=== PATIENT | female | born 1980 | race Caucasian/White ===

== ENCOUNTER 2021-03-24 16:34 | Outpatient (CLI) | payer OTHER, SELFPAY | END 2021-03-24 17:26 | disposition home or self-care (01) | LOC: OB 03-29 07:40 | PROVIDERS: PCP Family Medicine; Referring Provider Family Medicine; Visit Provider Family Medicine | DX: O47.03 False labor before 37 completed weeks of gestation, third trimester (principal); Z3A.33 33 weeks gestation of pregnancy | CPT/HCPCS: 59025; 84112; G0378; G0379 ==

== ENCOUNTER → 2021-04-13 13:53 | Outpatient (ROUT) | payer OTHER, SELFPAY | PROVIDERS: PCP Family Medicine; Visit Provider Family Medicine | DX: Z34.90 Encounter for supervision of normal pregnancy, unspecified, unspecified trimester (principal) | CPT/HCPCS: 87081 ==

== ENCOUNTER → 2021-05-04 14:40 | Outpatient (CLI) | payer OTHER, SELFPAY ==
--- NOTE | 2021-05-04 | DI.US.S_ITS ---
PROCEDURE: US OB LIMITED INDICATIONS: POSITION; EFW OUTSIDE/PRIOR DATING DATA: First dating scan (date and location): 12/24/2020. Estimated date of delivery (NELSON) from first dating scan: 05/05/2021. The calculations are made using the ultrasound NELSON of 05/05/2021. TECHNIQUE: Real-time scanning was performed of the fetus, with image documentation and biometric measurements. COMPARISON: [facility], US, US OB > 14 WEEKS FOLLOW UP, 01/18/2021, 13:56. FINDINGS: General: A single living intrauterine gestation is present. Presentation: Vertex. Placenta: Placental position is right fundal , without previa. Amniotic fluid index: 10 cm, normal range is 5-24 cm. heart rate: 157 beats per minute. Maternal cervical canal: Not well seen. biometrics: Biparietal diameter: 35 weeks 5 days Head circumference: 36 weeks 3 days Abdominal circumference: 35 weeks 6 days Femur length: 37 weeks 2 days Clinically estimated gestational age: 39 weeks 6 days Composite gestational age from present scan: 36 weeks 2 days Estimated weight and percentile: 2883 g; 6 percentile Other: Not applicable. IMPRESSION: 1. Single living IUP redemonstrated and interval growth is less than expected with estimated weight at the 6 percentile. Developing intrauterine growth restriction cannot be excluded and close clinical correlation and follow-up is recommended. We strive to produce accurate, complete, and clear reports of imaging services. To assist us in improving patient care, this report was composed using standard report templates and voice recognition software. Therefore, it may contain abnormal punctuation, insertions and/or omissions. Occasional wrong-word or sound-alike substitutions may occur. Though we review the report and make efforts to correct it, we do recommend that the report be read carefully in proper context to recognize any text inaccuracies. Dictated by: Crow Campbell RRNette Interpreted: Bryant Cannon MD on 05/04/2021 at 15:27 Transcribed by: DELMA on 05/04/2021 at 15:32 Approved by: Bryant Cannon M.D. on 05/04/2021 at 16:51
== END ==
PROVIDERS: PCP Family Medicine; Referring Provider Family Medicine; Visit Provider Family Medicine
DX: O36.5130 Maternal care for known or suspected placental insufficiency, third trimester, not applicable or unspecified (principal); Z3A.36 36 weeks gestation of pregnancy
CPT/HCPCS: 76815

== ENCOUNTER 2021-05-15 08:51 | Inpatient (IN) | payer OTHER, SELFPAY ==
--- NOTE | 2021-05-15 10:40 | PM.OBHP.1 ---
OB HPI Date/Time Date of admission: 05/15/21 Date Patient Seen: 05/15/21 Time Patient Seen: 10:40 History of Present Condition Chief complaint: : 3 Para: 1 Estimated Date of Delivery: 05/08/21 Estimated Gestational Age (weeks): 41.0 Narrative: Reina Shahid is a 41 year old at 41 weeks with single gestation presents in active labor with contraction q4-6 minutes with cervical changes. She lives in [place] and there is an active blizzard ongoing today with accumulation up over 6 inches. She does not desire epidural and delivered previous gestation without epidural; recent US 04/28 showed vertex presentation. History of Present care: good care Dating criteria: LMP confirmed by 1st trimester US Ultrasounds: normal 1st trimester US and normal mid trimester US Abnormal ultrasound findings: 05/04/21 ultrasound showed vertex position with interval growth less than expected, could not exclude developing intrauterine growth restriction Obstetrical complications: none Medical complications: none Narrative: In early before establishing with Dr. Cast this patient had a laparscopic salpingectomy for mass which turned out to be benign cyst; she recovered well with no issues. She also had some renal abnormalities on ultrasound which follow up showed was not changing and are thought to be normal variation of pillars of [place] and has not resulted in any issues. Preadmission Labs Blood type: O (+) positive -: Antibody screen: negative, GBS status: negative (04/13/2021), HBsAG: negative (10/01/2020), HIV: negative (10/01/2020) and RPR/VDLR: negative (T pallidum antibodies negative 10/01/20) -: Chlamydia screen: not detected (10/01/2020) and Gonorrhea screen: not detected (10/01/2020) -: Rubella: not immune (10/01/2020) and Varicella: immune (hx of disease) HCT: 34.7 PAP: Abnormal ([place] in 02/2020) Quad screen: Normal 1 hr GTT: 110 Prior (ies) History: 1 term baby delivered via , one miscarriage Evaluation Evaluation Baseline heart rate: 135 Variability: Average (6-10) monitor accelerations: Present Monitor Decelerations: Absent Contraction Frequency (minutes): 5 Uterine Contraction Intensity: Strong/Firm Category of Tracing: Reactive Status: Category l Dilation: 1-2 cm Effacement: 60-70% station: -2 Position of cervix: posterior Consistency: soft Villarreal score: 6 Meds Home Medications and Allergies Allergies Allergy/AdvReac Type Severity Reaction Status Date / Time amoxicillin [From Augmentin] Allergy Verified 05/15/21 10:53 clavulanic acid Allergy Verified 05/15/21 10:53 [From Augmentin] Review of Systems Review of Systems Narrative: all systems reviewed and neative except as otherwise documented in HPI OB Exam Narrative Exam Narrative: gravid female laying on triage bed HENMT Head: normal to inspection and atraumatic Mouth: oral mucosae normal and moist mucous membranes Eyes General: appearance normal, both eyes and all related structures Resp Effort & Inspection: normal respiratory effort Auscultation: clear to auscultation bilaterally Cardio Rate: regular rate Rhythm: regular rhythm Heart Sounds: S1 normal and S2 normal Extremities Lower extremity: Yes normal to inspection GI Inspection: normal to inspection Palpation: soft Auscultation: normal bowel sounds Assessment and Plan Assessment and Plan Assessment and Plan narrative: #intrauterine at 41.0 wks in 41 yo VSS, admit for expectant management, will see how cervix exam changes and consider some pitocin she is amenable. does not desire epidural encouraged to ambulate and use birthing ball Was scheduled for induction anyway for [id number] growth and possible IUGR plus I do not want her traveling in [facility] conditions Dr. Huddleston chief solution architect OB is aware #possible IUGR noted on May 04 ultrasound with less than expected growth for gestational age, estimated weight 2883g, 6th percentile Code: full MDM: diet: regular
[2021-05-15 12:23] LABS: COVID19 -Nasal RAPID Negative (Negative)
[2021-05-15 13:25] LABS: Add Manual Diff / Slide Review NO; Basophils Absolute Auto 0 /uL (0-100); Basophils Percent Auto 0.1 % (0-2); Eosinophils Absolute Auto 100 /uL (0-450); Eosinophils Percent Auto 0.7 % (2-4); Hematocrit 38.4 % (36-46); Hemoglobin 12.9 g/dL (12.0-16.0); Lymphocytes Absolute Auto 2700 /uL (1100-4500); Lymphocytes Percent Auto 18.5 % (25-40); Mean Corpuscular HGB Conc 33.7 % (30-36); Mean Corpuscular Hemoglobin 32.5 PG (26-34); Mean Corpuscular Volume 96.4 fL (80-100); Monocytes Absolute Auto 900 /uL (0-900); Neutrophils Absolute Auto 10700 /uL (1500-7000); Neutrophils Percent Auto 74.7 % (50-75); Platelet Count 227 X10^3/uL (150-400); Red Blood Cell Count 3.99 X10^6/uL (4.0-5.2); Red Cell Distribution Width 13.7 % (11.6-14.8); White Blood Cell Count 14.3 X10^3/uL (4.5-11.0)
[2021-05-15 14:06] VITALS: BP 111/72
[2021-05-15] MEDS: OXYTOCIN PREMIX 30 UNIT/500 ML PLAST..BAG IV (15:00)
[2021-05-15] MEDS: LACTATED RINGERS 1,000 ML 100 ML IV (15:00)
[2021-05-16] MEDS: DINOPROSTONE VAG (CERVIDIL) 10 MG VAG (00:31)
--- NOTE | 2021-05-16 10:28 | PM.OBPNLAB ---
Date/Time Date Patient Seen: 05/16/21 Time Patient Seen: 10:28 Pain Control Pain control: tolerating well Comments: no epidural Pelvic Exam Dilation (cm): 5 Effacement (%): 60 station: -2 Amniotic membrane status: Intact Comments: Good progress on pitocin noted may break bag here next Contractions Pitocin rate (mU/min): 3 Contraction frequency (min): 2 Contraction pattern: Regular Contraction intensity: Strong/Firm Status status: Category l Heart Rate Baseline: 150 Monitor Accelerations: Present Monitor Decelerations: Absent Monitor Variability: Moderate Assessment and Plan Assessment: active labor Plan: continuous present management Comments: #intrauterine in active labor at 41.1 wks got cervedil overnight started on pitocin this morning doing well continue with light pitocin and expectant management may also attempt to rupture amniotic sac to speed things up Dr. Huddleston aware
--- NOTE | 2021-05-16 12:23 | PM.OBPRVD ---
Events: Other (possible IUGR per 3rd trimester ultrasound) Labor & Delivery Delivery date: 05/16/21 Intrapartal Events: None Cervical ripening method: per Cervidil protocol Induction method: per pitocin protocol Delivery augmentation: rupture of membranes and pitocin Delivery monitor: external FHT and external uterine Route of delivery: L&D Laceration Description: Perineal - 2nd Degree and Vaginal - 1st Degree Delivery repair: vicryl Estimated blood loss (mL): 100 Anesthesia Type: None (none for delivery; local lidocaine for laceration repair) Narrative: Pt had been planned for induction last week due to concern for possible IUGR however bumped due to scheduling. Came in last night partially dilated with contractions q4, cervix 2+ yesterday, we [place]. Receive some pitocin without much cervical changes yesterday, rested and received cervidil overnight with favorable cervix this a.m. was started on pitocin and delivered Baby 1: gender: Female Presentation: vertex Position: Occiput Posterior Placenta delivery description: Spontaneous and Normal Configuration Cord Vessel Description: 3 Vessels score (1 min): 8 score (5 min): 9 score (10 min): 9 weight: 3.058 kg Narrative: active wiggly infant Plan for aftercare: Routine care
[2021-05-16] MEDS: IBUPROFEN 600 MG TABLET PO ×2 (14:04→20:40)
[2021-05-16] MEDS: ACETAMINOPHEN 325 MG TABLET 650 MG PO (20:40)
[2021-05-17] MEDS: IBUPROFEN 600 MG TABLET PO ×2 (02:39→10:41)
[2021-05-17] MEDS: ACETAMINOPHEN 325 MG TABLET 650 MG PO ×2 (02:39→10:41)
[2021-05-17] MEDS: PRENATAL VIT,CALC/IRON/FOLIC 1 TABLET 1 TAB PO (10:41)
[2021-05-17] MEDS: DOCUSATE 100 MG CAPSULE PO (10:42)
--- NOTE | 2021-05-17 13:35 | P.DS_ITS ---
Discharge Providers Provider Date of admission: 05/15/21 08:51 Discharge Date: 05/17/21 Primary care physician: Javi Cast MD Consults: 05/17/21 12:29 Consult to Software Release Manager Routine Comment: Discharge provider: Mc Brito MD Summary Hospital Course Date Patient Seen: 05/17/21 Time Patient Seen: 13:35 Diagnoses: Term intrauterine delivered Hospital Course: Patient was delivered without complications. She was transferred to recovery and did well. Minimal bleeding minimal pain was controlled with Tylenol and ibu profen. Breast-feeding seem to be going well. She had no other significant changes. Patient was tolerating p.o. well. Having no other major issues was requesting to go home. Routine Education. Discuss contraceptive and depression. Questions were answered. Patient will be discharged home with follow-up with her primary care doctor in the next 2 weeks Peripartum Data Infant Delivery Method: Natural Vaginal Status at Discharge Cognitive/behavioral status at discharge: oriented Time Spent with Patient Time attestation: Total time spent providing and/or coordinating discharge services: Objective Labs Result Diagrams: 05/15/21 13:00 Exam Vital Signs (past 8 hours): Alert smiling female moving around the room in no acute distress. Abdomen is soft positive bowel sounds uterus is firm at umbilicus. Extremities are normal no edema Discharge Plan Discharge Plan Patient Disposition: Home Discharge orders & Medications Prescriptions: New acetaminophen 325 mg Tablet 650 mg PO Q4HR PRN (Reason: Fever/Mild Pain (1-3)) Qty: 10 0RF ibuprofen 600 mg Tablet 600 mg PO Q6HR PRN (Reason: Pain, Mild (1-3)) Qty: 20 0RF Prenatabs Rx 29 mg iron- 1 mg Tablet 1 tab PO DAILY Qty: 30 0RF Follow up/Referrals: Mc Brito MD [Physician] - Javi Cast MD [Primary Care Provider] - 2 Weeks (Patient scheduled) Diet/Activity/Treatments Diet: Diet as Tolerated Activity: No sexual activity until bleeding done and approximately 6 weeks . Slow increase in activity as tolerated Skin/Wound/Dressing Care Report to your healthcare provider any signs of infection, such as:: chills, fever, night sweats, increased pain, unusual drainage and unusual redness Visit Report/Discharge Packet Stand Alone Forms: Discharge: Care Discharge Data Primary Care Provider: Javi Cast
[2021-05-17 17:06] VITALS: BP 111/72; PULSE 88; RESP 20; TEMP 36.8
== END 2021-05-17 15:20 | disposition home or self-care (01) | DRG 807 ==
PROVIDERS: Admitting Provider Family Medicine; PCP Family Medicine; Referring Provider Family Medicine; Visit Provider Family Medicine
DX: O48.0 Post-term pregnancy (principal); Z37.0 Single live birth; Z3A.41 41 weeks gestation of pregnancy; O70.1 Second degree perineal laceration during delivery; O70.0 First degree perineal laceration during delivery; Z20.822 Contact with and (suspected) exposure to COVID-19
CPT/HCPCS: 36415; 59050; 85025; 86850; 86900; 86901; 87635; C9803; G0379; J2590